=== PATIENT | male | born 1945 | race Hispanic/Latino ===

== ENCOUNTER → 2020-06-22 | Outpatient (CLI) | payer OTHER, MEDICARE ==
[~2020-06-22] MED LIST: CARV25TA PO; CLOP75TA32 PO; FAMO20TA8 PO; FENO134C PO; GLIP5TAB11 PO; HYDR12.530 PO; ISOS60TA4 PO; LINA5TAB PO; LISI40TA4 PO; METF-446 PO; PANT40TA54 PO; PRAV40TA3 PO; REGADENOSON 0.4 MG/5 ML PF SYG IVP SCH; TAMS0.4C32 PO; TRAM50TA4 PO; VALS320T16 PO
== END | disposition home or self-care (01) ==
LOC: RAH 09:56
PROVIDERS: ATTEND Internal Medicine
DX: I25.10 Atherosclerotic heart disease of native coronary artery without angina pectoris (principal); R06.02 Shortness of breath
CPT/HCPCS: 78452; 93017; 96374; A9500 ×2; J2785

== ENCOUNTER 2023-06-20 19:20 | Emergency (ER) | payer MEDICARE ==
[~2023-06-20] VITALS: Ht 172.7 cm; Wt 108.9 kg
[~2023-06-20 19:20] MED LIST changes: -FENO134C PO; +FENO134C21 PO; -GLIP5TAB11 PO; +GLIP5TAB15 PO; -ISOS60TA4 PO; +ISOS60TA77 PO; -LISI40TA4 PO; +LISI40TA9 PO; -REGADENOSON 0.4 MG/5 ML PF SYG IVP SCH
[2023-06-20 19:47] LABS: BASOPHILS # (AUTO) 0.04 K/uL (0.00-0.20); BASOPHILS % (AUTO) 0.4 % (0.0-5.0); EOSINOPHILS # (AUTO) 0.41 K/uL (0.00-0.70); EOSINOPHILS % (AUTO) 3.9 % (0.0-8.0); HEMATOCRIT 35.1 % (42-54); IMMATURE GRANULOCYTE ABSOLUTE 0.04 K/uL (0-1); LYMPHOCYTES # (AUTO) 1.6 K/uL (1.0-4.8); LYMPHOCYTES % (AUTO) 15.7 % (21.0-51.0); MEAN CORPUSCULAR HEMOGLOBIN 27.1 pg (27.0-33.0); MEAN CORPUSCULAR HGB CONC 31.6 g/dL (32.0-36.0); MEAN CORPUSCULAR VOLUME 85.6 fL (79-99); MONOCYTES # (AUTO) 0.7 K/uL (0.1-1.0); MONOCYTES % (AUTO) 6.7 % (3.0-13.0); NEUTROPHILS # (AUTO) 7.6 K/uL (1.8-7.7); NEUTROPHILS % (AUTO) 72.9 % (40.0-77.0); PLATELET COUNT (AUTO) 230 K/uL (130-400); RED CELL DISTRIBUTION WIDTH 16.6 % (11.0-15.5); WHITE BLOOD COUNT (AUTO) 10.4 K/uL (4.8-10.8)
[2023-06-20 19:52] LABS: APPEARANCE,URINE CLEAR (CLEAR); BILIRUBIN,URINE NEGATIVE (NEGATIVE); COLOR,URINE LIGHT-YELLOW (YELLOW); GLUCOSE, URINE (UA) 200 mg/dL (NEGATIVE); KETONES,URINE NEGATIVE (NEGATIVE); LEUKOCYTE ESTERASE ,URINE NEGATIVE Leu/uL (NEGATIVE); NITRATE,URINE NEGATIVE (NEGATIVE); OCCULT BLOOD,URINE MODERATE (NEGATIVE); PH,URINE 5.5 (5.0-8.0); PROTEIN,URINE 50 mg/dL (NEGATIVE); UROBILINOGEN,URINE 0.2 mg/dL (0.2-1.0)
[2023-06-20 19:53] LABS: ADD UA MICROSCOPIC YES
[2023-06-20 19:54] LABS: MUCUS,URINE RARE LPF (None Seen); RBC,URINE 0-1 /HPF (0-1); WBC,URINE 0-1 /HPF (0-1)
[2023-06-20 20:00] LABS: CREATININE 2.8 mg/dL (0.5-1.5); POTASSIUM 4.2 mmol/L (3.5-5.1)
[2023-06-20 20:07] LABS: B-TYPE NATRIURETIC PEPTIDE 116 pg/mL (0-100)
[2023-06-20 20:11] LABS: ALBUMIN 3.9 g/dL (3.5-5.0); BILIRUBIN,TOTAL 0.3 mg/dL (0.2-1.0); TOTAL PROTEIN, SERUM 7.1 g/dL (6.0-8.3)
[2023-06-20] MEDS ORDERED: MORPHINE 2 MG SYG IVP ONE (20:30)
[2023-06-20] MEDS ORDERED: LACTATED RINGERS 1000ML 1,000 ML IV ONE (20:30)
[2023-06-20] MEDS ORDERED: METOCLOPRAMIDE 10 MG/2 ML VIAL IVP ONE (20:30)
[2023-06-20] MEDS ORDERED: FAMOTIDINE 20MG VIAL IV ONE (20:30)
[2023-06-21 00:35] VITALS: BP 166/71; PULSE 67; RESP 16; O2SAT 97
[2023-06-21] MEDS ORDERED: POLY17PO4 PO (00:49)
== END 2023-06-21 00:58 | disposition home or self-care (01) ==
LOC: EDH 19:20
DX: K80.20 Calculus of gallbladder without cholecystitis without obstruction (principal); K80.50 Calculus of bile duct without cholangitis or cholecystitis without obstruction; E11.9 Type 2 diabetes mellitus without complications; I10 Essential (primary) hypertension; Z79.02 Long term (current) use of antithrombotics/antiplatelets; Z79.84 Long term (current) use of oral hypoglycemic drugs; Z79.899 Other long term (current) drug therapy; Z95.5 Presence of coronary angioplasty implant and graft
CPT/HCPCS: 99285; 74176; 96374; 76705; 71045; 96375; 96361; 82550; 83874; 84484; 80053; 83880; 83690; 85025; 81001; 36415; 93005; J3490; J2270; J2765

== ENCOUNTER 2023-10-29 08:44 | Emergency (ER) | payer MEDICARE ==
[~2023-10-29] VITALS: Ht 172.7 cm; Wt 113.4 kg
[~2023-10-29 08:44] MED LIST changes: +POLY17PO4 PO
[2023-10-29] MEDS: ONDANSETRON 4MG INJ ONE (09:07)
[2023-10-29] MEDS: ONDANSETRON 4MG INJ IVP ONE (09:09)
[2023-10-29] MEDS: LACTATED RINGERS 500 ML IV ONE (09:19)
[2023-10-29] MEDS: MECLIZINE HCL 25 MG TABLET PO ONE (09:19)
[2023-10-29 09:32] LABS: BASOPHILS # (AUTO) 0.04 K/uL (0.00-0.20); BASOPHILS % (AUTO) 0.5 % (0.0-5.0); EOSINOPHILS # (AUTO) 0.18 K/uL (0.00-0.70); EOSINOPHILS % (AUTO) 2.4 % (0.0-8.0); HEMATOCRIT 35.4 % (42-54); IMMATURE GRANULOCYTE ABSOLUTE 0.03 K/uL (0-1); LYMPHOCYTES # (AUTO) 1.1 K/uL (1.0-4.8); LYMPHOCYTES % (AUTO) 14.2 % (21.0-51.0); MEAN CORPUSCULAR HEMOGLOBIN 29.6 pg (27.0-33.0); MEAN CORPUSCULAR HGB CONC 33.1 g/dL (32.0-36.0); MEAN CORPUSCULAR VOLUME 89.6 fL (79-99); MONOCYTES # (AUTO) 0.4 K/uL (0.1-1.0); NEUTROPHILS # (AUTO) 5.8 K/uL (1.8-7.7); NEUTROPHILS % (AUTO) 77.5 % (40.0-77.0); PLATELET COUNT (AUTO) 219 K/uL (130-400); RED BLOOD CELL COUNT(AUTO) 3.95 MIL/uL (4.50-6.20); RED CELL DISTRIBUTION WIDTH 15.4 % (11.0-15.5); WHITE BLOOD COUNT (AUTO) 7.5 K/uL (4.8-10.8)
[2023-10-29 09:35] LABS: ALBUMIN 3.9 g/dL (3.5-5.0); APPEARANCE,URINE CLEAR (CLEAR); BILIRUBIN,TOTAL 0.6 mg/dL (0.2-1.0); BILIRUBIN,URINE NEGATIVE (NEGATIVE); COLOR,URINE COLORLESS (YELLOW); CREATININE 2.8 mg/dL (0.5-1.5); GLUCOSE, URINE (UA) 500 mg/dL (NEGATIVE); KETONES,URINE NEGATIVE (NEGATIVE); LEUKOCYTE ESTERASE ,URINE NEGATIVE Leu/uL (NEGATIVE); NITRATE,URINE NEGATIVE (NEGATIVE); OCCULT BLOOD,URINE MODERATE (NEGATIVE); PH,URINE 6.5 (5.0-8.0); POTASSIUM 4.3 mmol/L (3.5-5.1); PROTEIN,URINE 50 mg/dL (NEGATIVE); TOTAL PROTEIN, SERUM 7.3 g/dL (6.0-8.3); UROBILINOGEN,URINE 0.2 mg/dL (0.2-1.0)
[2023-10-29 10:05] LABS: ADD UA MICROSCOPIC YES
[2023-10-29 10:10] LABS: MUCUS,URINE RARE LPF (None Seen); SQUAMOUS EPITHELIAL CELL,UR RARE /HPF (0-2)
[2023-10-29] MEDS: ASPIRIN 325MG EC TAB PO ONE (13:47)
[2023-10-29] MEDS: LACTATED RINGERS 1000ML 1,000 ML IV SCH (14:59)
[2023-10-29] MEDS ORDERED: ONDA4TAB10 PO (17:44)
[2023-10-29] MEDS ORDERED: MECL-160 PO (17:44)
[2023-10-29 17:51] VITALS: BP 162/78; PULSE 74; RESP 16; O2SAT 98
== END 2023-10-29 18:00 | disposition home or self-care (01) ==
LOC: EDH 08:44
DX: R42 Dizziness and giddiness (principal); E11.9 Type 2 diabetes mellitus without complications; K21.9 Gastro-esophageal reflux disease without esophagitis; E78.00 Pure hypercholesterolemia, unspecified; E03.9 Hypothyroidism, unspecified; I10 Essential (primary) hypertension; Z79.82 Long term (current) use of aspirin
CPT/HCPCS: 99285; 70544; 96374; 70450; 80053; 85025; 81001; 36415; 70547; 93005; J2405

== ENCOUNTER 2024-01-10 09:10 | Emergency (ER) | payer MEDICARE ==
[~2024-01-10] VITALS: Ht 177.8 cm; Wt 109.8 kg
[~2024-01-10 09:10] MED LIST changes: +MECL-302 PO; +ONDA-243 PO
[2024-01-10] MEDS: ORPHENADRINE CITRATE 30 MG/ML ML IM ONE (10:27)
[2024-01-10] MEDS: KETOROLAC 60 MG VIAL (30MG/ML) IM ONE (10:28)
[2024-01-10] MEDS: DIAZEPAM 5 MG TABLET PO ONE (11:02)
[2024-01-10 11:10] VITALS: BP 146/65; PULSE 65; RESP 18; O2SAT 100
== END 2024-01-10 11:34 | disposition home or self-care (01) ==
LOC: EDH 09:10
DX: M54.41 Lumbago with sciatica, right side (principal); I10 Essential (primary) hypertension; E78.5 Hyperlipidemia, unspecified; E11.9 Type 2 diabetes mellitus without complications; Z88.8 Allergy status to other drugs, medicaments and biological substances; Z79.84 Long term (current) use of oral hypoglycemic drugs; Z79.899 Other long term (current) drug therapy
CPT/HCPCS: 99284; 96372 ×2; J1885; J2360

== ENCOUNTER 2025-07-19 18:38 | Emergency (ER) | payer MEDICARE, OTHER ==
[~2025-07-19] VITALS: Ht 175.3 cm; Wt 106.1 kg
--- NOTE | 2025-07-19 18:46 | ERN ---
ED Note History of Present Illness Stated Complaint: LACERATION Chief Complaint: Laceration/Avulsion Time Seen by MD: 18:42 Dictation: PATIENT IS A 80-YEAR-OLD MALE COMING IN TODAY WITH A LACERATION TO THE LEFT LATERAL CALCANEAL AREA OF HIS FOOT ONSET 30 MINUTES PRIOR TO ARRIVAL. HE STATES HE WAS WORKING WITH HIS TRAILER AND SOME METAL WHEN HE CUT IT ON THE METAL. HE IS UNSURE IF THERE WAS ANY RETAINED FOREIGN BODY. HE STATES HE HAS A DIABETIC IN HIS LAST TETANUS SHOT IS UNKNOWN. NO ACTIVE BLEEDING AT THIS TIME. Allergies: Coded Allergies: Adhesive Bandage (Unverified Allergy, ITCHING, 02/05/12) Home Meds Active Scripts Ondansetron (Ondansetron Odt) 4 Mg Tab.rapdis, 4 MG PO TID PRN for nausea/vomiting for 7 Days, #10 TAB 0 Refills Prov:KAMAR FELICIANO DO 10/29/23 Meclizine HCl (Meclizine HCl) 25 Mg Tablet, 25 MG PO TIDP PRN for dizziness, #30 TAB 0 Refills Prov:KAMAR FELICIANO DO 10/29/23 Polyethylene Glycol 3350 (Miralax) 17 Gram Powd.pack, 17 GM PO DAILY for constipation, #30 PACKET 2 Refills Prov:ROSANNA CHAHAL Sr., MD 06/21/23 Reported Medications Pravastatin Sodium (Pravastatin Sodium) 40 Mg Tablet, 40 MG PO HS, TAB 07/05/15 Isosorbide Mononitrate (Isosorbide Mononitrate ER) 60 Mg Tab.er.24h, 60 MG PO DAILY, TAB 07/05/15 Metformin HCl (Metformin HCl) 1,000 Mg Tablet, 1000 MG PO BIDMEALS, TAB 07/05/15 Tamsulosin HCl (Tamsulosin HCl) 0.4 Mg Cap.er.24h, 0.4 MG PO DAILY, CAPSULE.DR 07/05/15 Valsartan (Valsartan) 320 Mg Tablet, 320 MG PO DAILY, TAB 07/05/15 Hydrochlorothiazide (Hydrochlorothiazide) 12.5 Mg Capsule, 12.5 MG PO DAILY, CAP 07/05/15 Tramadol Hcl (Tramadol HCl) 50 Mg Tablet, 50 MG PO Q8H PRN for PAIN, TAB 07/05/15 Fenofibrate,Micronized (Fenofibrate) 134 Mg Capsule, 134 MG PO DAILY, CAP 07/05/15 Pantoprazole Sodium (Pantoprazole Sodium) 40 Mg Tablet.dr, 40 MG PO DAILY, TAB 07/05/15 Glipizide (Glipizide) 5 Mg Tablet, 5 MG PO BID, TAB 07/05/15 Lisinopril (Lisinopril) 40 Mg Tablet, 40 MG PO BID, TAB 07/05/15 Clopidogrel Bisulfate (Clopidogrel) 75 Mg Tablet, 75 MG PO DAILY, TAB 07/05/15 Famotidine (Famotidine) 20 Mg Tablet, 20 MG PO HS, TAB 07/05/15 Linagliptin (Tradjenta) 5 Mg Tablet, 5 MG PO DAILY, TAB 07/05/15 Carvedilol (Carvedilol) 25 Mg Tablet, 25 MG PO 2 tab in am 1 tab pm, TAB 07/05/15 Past Medical History Past Medical History: Diabetes-Type II, High Cholesterol, Hypertension, Sciatica Surgical History: Other Surgical History Other: ABD HERNIA REPAIR, HEMORRHOID SX RN Note Reviewed/Agreed w/PFSH: Yes Review of System Dictation CONSTITUTIONAL: NEGATIVE EXCEPT FOR HPI HEAD/FACE: NEGATIVE EXCEPT FOR HPI EENT: NEGATIVE EXCEPT FOR HPI RESPIRATORY: NEGATIVE EXCEPT FOR HPI GASTROINTESTINAL/ABDOMINAL: NEGATIVE EXCEPT FOR HPI GENITOURINARY: NEGATIVE EXCEPT FOR HPI MUSCULOSKELETAL: NEGATIVE EXCEPT FOR HPI INTEGUMENTARY: NEGATIVE EXCEPT FOR HPI LACERATION LEFT LATERAL CALCANEAL AREA NEUROLOGICAL/PSYCH: NEGATIVE EXCEPT FOR HPI HEMATOLOGIC/LYMPHATIC: NEGATIVE EXCEPT FOR HPI ALL SYSTEMS NEGATIVE, EXCEPT NOTED ABOVE. 13 POINT REVIEW OF SYSTEMS ASSESSED AND ALL NEGATIVE EXCEPT FOR ABOVE. Initial Vital Sign VS Vital Signs Date Time Temp Pulse Resp B/P (MAP) Pulse Ox O2 Delivery O2 Flow Rate FiO2 07/19/25 18:40 97.3 64 18 145/68 97 Room Air 0 07/19/25 19:41 21 Physical Exam Dictation VITAL SIGNS REVIEWED GENERAL APPEARANCE: ALERT, ORIENTED X 3, MODERATE ACUTE DISTRESS, WELL DEVELOPED, NOURISHED. HEAD AND FACE: NON-TRAUMATIC. EYES: PERRL, PINK CONJUNCTIVAS, EYELID NO TRAUMA, ANTERIOR CHAMBER WITH ARCUS SENILIS. EARS: PINNAS INTACT AND NO SIGNS OF TRAUMA OR ERYTHEMA EAR CANALS CLEAR AND NO DISCHARGE TM NO ERYTHEMA NOSE: NO DISCHARGE, NO BLEEDING. OROPHARYNX: MOUTH NORMAL, TONGUE PINK, PHARYNX CLEAR,NO ERYTHEMA, TONSILS NO EXUDATES, NO ABSCESSES NOTED, MUCOUS MEMBRANE MOIST NECK: SUPPLE, NON-TENDER, NO THYROMEGALY, NO MASSES, NO JVD, NO BRUITS BREAST:DEFERRED CHEST:NO TENDERNESS, NO CREPITUS, NO PARADOXICAL MOVEMENT, NO RETRACTIONS LUNGS:CLEAR, WELL-VENTILATED, SYMMETRIC, NO RALES, NO WHEEZING, NO RHONCHI, NO STRIDOR, GOOD BREATH SOUNDS BILATERALLY HEART: REGULAR RATE, REGULAR RHYTHM, NO MURMUR, NO GALLOPS VASCULAR: NO PERIPHERAL EDEMA, ABDOMEN: SOFT, POSITIVE BOWEL SOUNDS, NONDISTENDED, NO GUARDING, NONTENDER, NO REBOUND, NO MASSES NO HEPATOMEGALY, NO SPLENOMEGALY, NO GUIDRY'S SIGN, NO HERNIAS. RECTAL: DEFERRED GENITAL: DEFERRED NEUROLOGICAL: NORMAL SPEECH, MOTOR FUNCTION INTACT, SENSORY FUNCTION INTACT MUSCULOSKELETAL: NECK NONTENDER, FULL RANGE OF MOTION, BACK NONTENDER, FULL RANGE OF MOTION, EXTREMITIES: NONTENDER, FULL RANGE OF MOTION SKIN: COLOR PINK, APPROXIMATE 3 CM LACERATION TO LEFT LATERAL CALCANEAL AREA. NO ACTIVE BLEEDING DISTAL NEUROVASCULAR CMS INTACT TO FOOT LYMPHATIC: DEFERRED Results (Laboratory/Radiology) Laboratory/Radiology 1928/LEFT FOOT X-RAY DEMONSTRATES NO RADIOPAQUE FOREIGN BODY. Labs Reviewed?: Yes ED Course ED Course Orders Procedure Category Date Status Time Neomy PHA 07/19/25 Complete Sulf/Bacitra/Polymyxin 19:00 Tetanus,Diphtheria PHA 07/19/25 Complete Tox [Adult] (Diphther 19:00 Acetaminophen With PHA 07/19/25 Complete Codeine (Tylenol-Code 19:00 Lidocaine Hcl 1% 20ml PHA 07/19/25 Complete Vial (Lidocaine Hc 19:00 Cephalexin 500 Mg PHA 07/19/25 Complete Capsule (Keflex 500 Mg 19:00 Foot Comp 3+Vws Lt RAD 07/19/25 Taken 18:43 Current Medications Medications (Trade) Dose Ordered Sig/Johnie Route PRN Reason Start Time Stop Time Status Last Admin Dose Admin Acetaminophen/ Codeine Phosphate (TYLenol-coDEINE TAB) 2 tab ONCE ONCE PO 07/19/25 19:00 07/19/25 19:09 DC 07/19/25 19:35 Cephalexin (Keflex 500 MG CAPS) 1,000 mg ONCE ONCE PO 07/19/25 19:00 07/19/25 19:08 DC 07/19/25 19:35 Lidocaine HCl (Lidocaine HCl 1% 20ml Vial) 10 ml ONCE ONCE INJ 07/19/25 19:00 07/19/25 19:08 DC Neomycin/ Polymyxin/ Bacitracin (Triple Antibiotic Ointment) 1 appl ONCE ONCE TP 07/19/25 19:00 07/19/25 19:06 DC 07/19/25 19:34 Tetanus/ Diphtheria Toxoids Adsorbed (DiphthERIA-teTANUS TOXOID [ADULT]/ DECAVAC) 0.5 ml ONCE ONCE IM 07/19/25 19:00 07/19/25 19:06 DC 07/19/25 19:34 Vital Signs Date Time Temp Pulse Resp B/P (MAP) Pulse Ox O2 Delivery O2 Flow Rate FiO2 07/19/25 19:41 97.3 64 18 145/68 97 Room Air* 0 21 07/19/25 18:40 97.3 64 18 145/68 97 Room Air 0 Medical Decision Making MDM MEDICAL DECISION-MAKING BASED ON EMPIRIC TREATMENT FOR A FOOT LACERATION X-RAY PERFORMED TO RULE OUT FOREIGN BODY, NONE FOUND. KEFLEX 1 G GIVEN P.O. PROPHYLAXIS DUE TO PATIENT'S HISTORY OF DIABETES TETANUS SHOT WAS ADMINISTERED LACERATION REPAIRED WITH SUTURES WOUND CARE INSTRUCTIONS GIVEN TO PATIENT IN HIS DAUGHTER ALL QUESTIONS ANSWERED Procedure Procedure Dictation: 1933/PROCEDURE EXPLAINED TO PATIENT HE AGREED TO PROCEED 3.8 CM LACERATION TO LEFT LATERAL CALCANEAL AREA CLEANSED WITH WOUND CLEANSER NO FOREIGN BODY 1% LIDOCAINE 3 ML USED FOR LOCAL ANESTHESIA WOUND CLOSED WIT EIGHT 3-0 NYLON SIMPLE INTERRUPTED SUTURES SINGLE-LAYER CLOSURE PATIENT TOLERATED WELL DX & DISP Disposition: Discharge Departure Impression: Primary Impression: Laceration of left foot excluding toes Condition: Stable Scripts Acetaminophen with Codeine (Acetaminophen-Cod #3 Tablet) 300 Mg-30 Mg Tablet 1 TAB PO Q4H PRN for MODERATE TO SEVERE PAIN, #10 TAB 0 Refills Prov: KELLI NINA PRODUCTION MINER 07/19/25 Mupirocin (Bactroban 2% Oint) 2 % Oint 1 APPL TP TID for 5 Days, #15 GM 0 Refills apply to affected area(s) Prov: KELLI NINA PRODUCTION MINER 07/19/25 Cephalexin (Cephalexin) 500 Mg Tablet 1 TAB PO TID for 7 Days, #21 TAB 0 Refills Prov: KELLI NINA PRODUCTION MINER 07/19/25 Additional Instructions: Follow-up with primary care provider in 1 to 2 days. Take medications as directed here in the emergency room. Okay to continue home medications unless otherwise discussed during your visit in the emergency room today. Return to your nearest emergency room if symptoms worsen or if there is no improvement. Call 911 if you need immediate assistance. Take Tylenol or Motrin [id number]-sloxmbu as needed and if no contraindications are present. Increase oral hydration. A wound culture or urine culture was ordered here in the emergency room department please follow-up with primary care provider and advise them to get repeat ports from our facility. If you had any Cam wrap/splints that were applied here, please do not remove them until you see your primary care or specialty. Keep laceration repair clean and dry. No tight-fitting shoes. Apply Bactroban ointment 3 times a day for five days with a Band-Aid. Take antibiotics as directed until gone. SUTURES OUT IN 10-14 DAYS Referrals: ARUE PHAN MD (PCP) Time of Disposition: 19:58 I have reviewed the case, and I agree with, Diagnosis and Plan KELLI NINA [facility] Jul 19, 2025 18:46
[2025-07-19] MEDS: NEOMY SULF/BACITRA/POLYMYXIN B 1 EACH PACKET TP ONE (19:34)
[2025-07-19] MEDS: LIDOCAINE HCL 1% 20 ML VIAL INJ ONE (19:35)
[2025-07-19 19:41] VITALS: BP 145/68; PULSE 64; RESP 18; TEMP 97.3; O2SAT 97
--- NOTE | 2025-07-19 21:16 | HMCIMG ---
EXAM: CR Left Foot, 3 views. CLINICAL HISTORY: Left lateral calcaneal area laceration with metal. Rule out foreign body. COMPARISON: None provided. FINDINGS: No acute fracture or aggressive appearing osseous lesion. Mild osteoarthritis. Large plantar calcaneal enthesophyte. Atherosclerotic vascular calcifications. IMPRESSION: No acute bony abnormality is evident. No radiopaque foreign body is evident. /[place]
== END 2025-07-19 20:22 | disposition home or self-care (01) ==
LOC: EDH 18:38
DX: S91.312A Laceration without foreign body, left foot, initial encounter (principal); E11.9 Type 2 diabetes mellitus without complications; E78.00 Pure hypercholesterolemia, unspecified; I10 Essential (primary) hypertension; Z79.02 Long term (current) use of antithrombotics/antiplatelets; Z79.84 Long term (current) use of oral hypoglycemic drugs; Z79.899 Other long term (current) drug therapy; Z87.19 Personal history of other diseases of the digestive system; Z98.890 Other specified postprocedural states; W26.8XXA Contact with other sharp object(s), not elsewhere classified, initial encounter; Y93.89 Activity, other specified; Y92.89 Other specified places as the place of occurrence of the external cause; Y99.8 Other external cause status
CPT/HCPCS: 12002; 73630; 90471; 90714; 99283; J2003

== ENCOUNTER 2025-08-05 19:15 | Emergency (ER) | payer OTHER ==
[~2025-08-05] VITALS: Ht 177.8 cm; Wt 106.1 kg
[~2025-08-05 19:15] MED LIST changes: +ACET-2079 PO; +CEPH500T PO; +LISI40TA15 PO; -LISI40TA9 PO; +MUPI22O TP; -PRAV40TA3 PO; +PRAV40TA62 PO
[2025-08-05 19:21] VITALS: BP 149/82; PULSE 95; RESP 20; TEMP 98.8
--- NOTE | 2025-08-05 20:14 | NUR ---
PT RE-ENTERED FROM OUTSIDE. STAFF NOTIFIED
--- NOTE | 2025-08-05 21:00 | NUR ---
REPORT TO MICHAEL ALVAREZ
--- NOTE | 2025-08-05 21:02 | ERN ---
ED Note History of Present Illness Stated Complaint: SUTURE REMOVAL Chief Complaint: Suture/Staple Removal Time Seen by MD: 19:53 Time Seen by Midlevel: 19:53 Dictation: The patient is an 80-year-old male with a history of hypertension, diabetes who presents to the emergency department for suture removals. Patient reports he had a laceration to his left ankle on July 19 and was seen here. They were eight stitches placed. Patient denies any fevers or complications with the sutures. Allergies: Coded Allergies: Adhesive Bandage (Unverified Allergy, ITCHING, 02/05/12) Home Meds Active Scripts Acetaminophen with Codeine (Acetaminophen-Cod #3 Tablet) 300 Mg-30 Mg Tablet, 1 TAB PO Q4H PRN for MODERATE TO SEVERE PAIN, #10 TAB 0 Refills Prov:KELLI NINA DEMOLITION HAMMER OPERATOR 07/19/25 Mupirocin (Bactroban 2% Oint) 2 % Oint, 1 APPL TP TID for 5 Days, #15 GM 0 Refills apply to affected area(s) Prov:KELLI NINA DEMOLITION HAMMER OPERATOR 07/19/25 Cephalexin (Cephalexin) 500 Mg Tablet, 1 TAB PO TID for 7 Days, #21 TAB 0 Refills Prov:KELLI NINA DEMOLITION HAMMER OPERATOR 07/19/25 Ondansetron (Ondansetron Odt) 4 Mg Tab.rapdis, 4 MG PO TID PRN for nausea/vomiting for 7 Days, #10 TAB 0 Refills Prov:KAMAR FELICIANO DO 10/29/23 Meclizine HCl (Meclizine HCl) 25 Mg Tablet, 25 MG PO TIDP PRN for dizziness, #30 TAB 0 Refills Prov:KAMAR FELICIANO DO 10/29/23 Polyethylene Glycol 3350 (Miralax) 17 Gram Powd.pack, 17 GM PO DAILY for constipation, #30 PACKET 2 Refills Prov:ROSANNA CHAHAL Sr., MD 06/21/23 Reported Medications Pravastatin Sodium (Pravastatin Sodium) 40 Mg Tablet, 40 MG PO HS, TAB 07/05/15 Isosorbide Mononitrate (Isosorbide Mononitrate ER) 60 Mg Tab.er.24h, 60 MG PO DAILY, TAB 07/05/15 Metformin HCl (Metformin HCl) 1,000 Mg Tablet, 1000 MG PO BIDMEALS, TAB 07/05/15 Tamsulosin HCl (Tamsulosin HCl) 0.4 Mg Cap.er.24h, 0.4 MG PO DAILY, CAPSULE.DR 07/05/15 Valsartan (Valsartan) 320 Mg Tablet, 320 MG PO DAILY, TAB 07/05/15 Hydrochlorothiazide (Hydrochlorothiazide) 12.5 Mg Capsule, 12.5 MG PO DAILY, CAP 07/05/15 Tramadol Hcl (Tramadol HCl) 50 Mg Tablet, 50 MG PO Q8H PRN for PAIN, TAB 07/05/15 Fenofibrate,Micronized (Fenofibrate) 134 Mg Capsule, 134 MG PO DAILY, CAP 07/05/15 Pantoprazole Sodium (Pantoprazole Sodium) 40 Mg Tablet.dr, 40 MG PO DAILY, TAB 07/05/15 Glipizide (Glipizide) 5 Mg Tablet, 5 MG PO BID, TAB 07/05/15 Lisinopril (Lisinopril) 40 Mg Tablet, 40 MG PO BID, TAB 07/05/15 Clopidogrel Bisulfate (Clopidogrel) 75 Mg Tablet, 75 MG PO DAILY, TAB 07/05/15 Famotidine (Famotidine) 20 Mg Tablet, 20 MG PO HS, TAB 07/05/15 Linagliptin (Tradjenta) 5 Mg Tablet, 5 MG PO DAILY, TAB 07/05/15 Carvedilol (Carvedilol) 25 Mg Tablet, 25 MG PO 2 tab in am 1 tab pm, TAB 07/05/15 Past Medical History Past Medical History: Diabetes-Type II, High Cholesterol, Heart Disease, Hypertension Surgical History: Other Surgical History Other: HEART STENTS, BILAT CATARACT SX, ABD HERNIA REPAIR RN Note Reviewed/Agreed w/PFSH: Yes Review of System Dictation Constitutional: Negative for fever,chills, and weight loss Eyes: Negative for injury, pain,redness, and discharge ENT: Negative for injury,pain or swelling Cardiovascular: Negative for chest pain, palpitations, and edema Respiratory: Negative for shortness of breath, cough, and wheezing, Abdomen/GI: Negative for abdominal pain, nausea, vomiting, diarrhea, and constipation Back: Negative for injury and pain : Negative for injury, bleeding and discharge MS/Extremity: Negative for injury and deformity Skin: Positive for left lower leg laceration Neuro: Negative for headache, weakness, numbness, tingling, and seizure Psych: Negative for suicide ideation, homicidal ideation, and hallucinations Initial Vital Sign VS Vital Signs Date Time Temp Pulse Resp B/P (MAP) Pulse Ox O2 Delivery O2 Flow Rate FiO2 08/05/25 19:21 98.8 95 20 149/82 96 Room Air Physical Exam Dictation Vital Signs reviewed General Appearance: Alert, oriented x 3, no acute distress, well developed, no urished. Head and Face: non-traumatic. Eyes: PERRL, pink conjunctivas, eyelid no trauma, anterior chamber with arcus senilis. Ears: Pinnas intact and no signs of trauma or erythema ear canals clear and no discharge TM no erythema Nose: No discharge, no bleeding. Oropharynx: Mouth normal, tongue pink. pharynx clear,no erythema, tonsils no exudates, no abscesses noted, mucous me mbrane moist Neck: Supple, non-tender, no thyromegaly, no masses, no JVD, no bruits Breast:Deferred Chest:No tenderness, no crepitus, no paradoxical movement, no retractions Lungs:Clear, well-ventilated, symmetric, no rales, no wheezing, no rhonchi, no stridor, good breath sounds bilaterally Heart: Regular rate, regular rhythm, no murmur, no gallops Vascular: no peripheral edema, Abdomen: Soft, positive bowel sounds, nondistended, no guarding, nontender, no rebound, no masses no hepatomegaly, no splenomegaly, no Cartwright's sign, no hernias. Rectal: Deferred Genital: Deferred Neurological: Normal speech, motor function intact, sensory function intact Musculoskeletal: Neck nontender, full range of motion, back nontender, full range of motion, Extremities: nontender, full range of motion Skin: Color pink, dry, no turgor, no rash, , no abrasions, no contusions. Eight sutures to left outer ankle laceration is about 4 cm in length. No drainage, scabbed Lymphatic: Deferred Results (Laboratory/Radiology) Labs Reviewed?: Yes ED Course ED Course Vital Signs Date Time Temp Pulse Resp B/P (MAP) Pulse Ox O2 Delivery O2 Flow Rate FiO2 08/05/25 19:21 98.8 95 20 149/82 96 Room Air Medical Decision Making MDM The patient is an 80-year-old male with a history of hypertension, diabetes who presents to the emergency department for suture removals. Patient reports he had a laceration to his left ankle on July 19 and was seen here. They were eight stitches placed. Patient denies any fevers or complications with the sutures. Eight sutures were removed. Patient tolerated suture removal well. No significant erythema or drainage from wound. Appears to be healing well. Patient with no fevers otherwise in no acute distress. Patient will be discharged to follow up with PCP. Differential diagnosis: Cellulitis, suture removal, laceration Need for hospitalization: Patient does not meet criteria for hospitalization. There are no social concerns with this patient. DX & DISP Disposition: Discharge Departure Impression: Primary Impression: Encounter for removal of sutures Condition: Stable Additional Instructions: Please follow up with your primary doctor in 1-2 days. Continue to monitor your area for any signs of infection. If anything worsens please return to ER. FOLLOW-UP WITH PRIMARY CARE PROVIDER IN 1 TO 2 DAYS. TAKE MEDICATIONS DIRECTED HERE IN THE EMERGENCY ROOM. OKAY TO CONTINUE HOME MEDICATIONS UNLESS OTHERWISE DISCUSSED DURING YOUR VISIT IN THE EMERGENCY ROOM TODAY. RETURN TO YOUR NEAREST EMERGENCY ROOM IF SYMPTOMS WORSEN OR IF THERE IS NO IMPROVEMENT. CALL 911 IF YOU NEED IMMEDIATE ASSISTANCE. TAKE TYLENOL [id number] NEEDED AND IF NO CONTRAINDICATIONS ARE PRESENT. INCREASE ORAL HYDRATION. A WOUND CULTURE OR URINE CULTURE WAS ORDERED HERE IN THE EMERGENCY ROOM DEPARTMENT PLEASE FOLLOW-UP WITH PRIMARY CARE PROVIDER AND ADVISE THEM TO GET REPEAT PORTS FROM OUR FACILITY. IF YOU HAD ANY RAD WRAP/SPLINTS THAT WERE APPLIED HERE, PLEASE DO NOT REMOVE THEM UNTIL YOU SEE YOUR PRIMARY CARE OR SPECIALTY. Referrals: AURE PHAN MD (PCP) Time of Disposition: 21:05 I have reviewed the case, and I agree with, Diagnosis and Plan RHIANNA BRAR [facility] Aug 05, 2025 21:02
== END 2025-08-05 21:17 | disposition home or self-care (01) ==
LOC: EDH 19:15
DX: S91.012D Laceration without foreign body, left ankle, subsequent encounter (principal); E11.9 Type 2 diabetes mellitus without complications; E78.00 Pure hypercholesterolemia, unspecified; I11.9 Hypertensive heart disease without heart failure; Z79.02 Long term (current) use of antithrombotics/antiplatelets; Z79.84 Long term (current) use of oral hypoglycemic drugs; Z79.899 Other long term (current) drug therapy; Z95.5 Presence of coronary angioplasty implant and graft; Z98.890 Other specified postprocedural states; X58.XXXD Exposure to other specified factors, subsequent encounter
CPT/HCPCS: 99282